=== PATIENT | male | born 1960 | race American Indian/Alaskan Native ===

== ENCOUNTER 2022-01-22 08:50 | Emergency (ER) | payer SELFPAY ==
--- NOTE | 2022-01-22 09:09 | Emergency Department Report ---
ED CPR HPI - General Chief Complaint: Cardiac Arrest/CPR Stated Complaint: CARDIAC ARREST Time Seen by Provider: 01/22/22 09:08 Source: EMS (Verbal report received from emergency medical services. EMS documentation not available at time of chart dictation ), RN notes reviewed Mode of arrival: Stretcher Limitations: Altered Mental Status, Physical Limitation - History of Present Illness Initial Comments: The patient was evaluated in the emergency department for symptoms described in the history of present illness. He/she was evaluated in the context of the global COVID-19 pandemic, which necessitated consideration that the patient might be at risk for infection with the virus that causes COVID-19. Institutional protocols and algorithms that pertain to the evaluation of patients at risk for COVID-19 are in a state of rapid change based on information released by regulatory bodies including the CDC and federal and state organizations. These policies and algorithms were followed during the patient's care in the emergency department. Please note that these policies, procedures and recommendations changed on a rapid basis. This patient is a 65-year-old gentleman, with a subsequent reported history of coronary artery disease as per his family, who is brought to the hospital today by emergency medical services with an EMS articulated complaint of [id number] cardiac arrest. Patient arrives receiving CPR, [id number] ventilation, and has a presenting GCS of 3. As per EMS report, patient was on the phone this morning with another individual, and reportedly complained of chest pain, shortness of breath, and became unresponsive. EMS reports that no bystander CPR was initiated, because the patient was reportedly alone. Ap parently a neighbor was contacted, who attempted to check on the patient, and was unable to enter the patient's domicile, secondary to the door being locked. EMS reports that approximately 20 minutes of labs from initial 911 call, all without the patient receiving any kind of CPR or resuscitative measures. EMS reports that upon their initial arrival, the patient is asystolic, and not breathing. Patient received epinephrine x4. A Claude airway was placed. Standard CPR and ACLS interventions are performed. EMS estimates total transport time approximately 25 minutes from the first initial contact. At no point time did the patient have a shockable rhythm. Upon arrival to this emergency room, the patient is pulseless, eyes are dilated, do not react to light, and he does not have a shockable rhythm. His resuscitative efforts are terminated secondary to prolonged downtime and medical futility. His family is subsequently informed. Complaint: collapsed during rest -: minute(s) Place: home Bystander CPR Performed: No Initial Findings in the Field: PEA Treatments Prior to Arrival: other airway device, chest compressions, epinephrine mgs # - Related Data Allergies Allergy/AdvReac Type Severity Reaction Status Date / Time Unable to Assess Allergy Verified 01/22/22 09:21 ED Review of Systems ROS: Stated complaint: CARDIAC ARREST Other details as noted in HPI Comment: Unobtainable due to pts medical conditions ED Physical Exam - General Limitations: Altered Mental Status, Physical Limitation General appearance: obtunded - Head Head exam: Present: atraumatic, normocephalic - Eye Eye exam: Present: other (Pupils dilated, bloodshot, and do not react to light) - ENT ENT exam: Present: normal exam, normal orophraynx, mucous membranes moist, normal external ear exam, other (Emesis noted in the mouth) - Neck Neck exam: Present: normal inspection - Respiratory Respiratory exam: Present: other (The patient is not breathing). Absent: normal lung sounds bilaterally, respiratory distress - Cardiovascular Cardiovascular Exam: Present: other (The patient is pulseless). Absent: regular rate, normal rhythm, systolic murmur, diastolic murmur, rubs, gallop - GI/Abdominal GI/Abdominal exam: Present: soft - Rectal Rectal exam: Present: deferred - Extremities Exam Extremities exam: Present: normal inspection - Back Exam Back exam: Present: normal inspection - Neurological Exam Neurological exam: Present: altered, other (GCS of 3, nonverbal) - Skin Skin exam: Present: warm, dry, intact, normal color. Absent: rash ED Medical Decision Making - Medical Decision Making Differential diagnosis, including but not limited to: Dissection, acute AK, pulmonary embolism, tension pneumothorax Critical care attestation.: If time is entered above; I have spent that time in minutes in the direct care of this critically ill patient, excluding procedure time. ED Disposition Clinical Impression: Cardiac arrest Disposition: 20 Is pt being admited?: No Does the pt Need Aspirin: No Condition: Undetermined
== END 2022-01-22 12:00 ==
LOC: EDBD → ED 08:50
DX: I46.9 Cardiac arrest, cause unspecified (principal)
CPT/HCPCS: 92950; 99285